=== PATIENT | male | born 1970 | race Caucasian/White ===

== ENCOUNTER 2018-05-31 10:00 | Day surgery (SDC) | payer OTHER ==
[~2018-05-31] VITALS: Ht 182.9 cm; Wt 109.8 kg
[2018-05-31 10:28] VITALS: BP 134/85
[2018-05-31 15:58] VITALS: BP 141/89
== END 2018-05-31 15:45 | disposition home or self-care (01) ==
LOC: DS 10:00 → OR 12:00 → DS 15:45
PROVIDERS: Neuromusculoskeletal Medicine, Sports Medicine
PROC: 0QPH04Z Removal of Internal Fixation Device from Left Tibia, Open Approach (ICD-10-PCS; principal; 2018-05-31 12:00)
DX: T84.84XS Pain due to internal orthopedic prosthetic devices, implants and grafts, sequela (principal); Y83.4 Other reconstructive surgery as the cause of abnormal reaction of the patient, or of later complication, without mention of misadventure at the time of the procedure
CPT/HCPCS: 76001; J0690; J2250; J2405; J2704; J3010; J3490; J7120